=== PATIENT | female | born 1955 | race Caucasian/White ===

== ENCOUNTER 2016-06-07 02:19 | Emergency (ER) | payer OTHER ==
[2016-06-07] MEDS ORDERED: GLUCAGON 1 MG/ML VIAL IVP STA (03:38)
[2016-06-07] MEDS ORDERED: ONDANSETRON 4 MG/2 ML VIAL IVP STA (03:38)
[2016-06-07] MEDS ORDERED: ONDANSETRON 4 MG/2 ML VIAL ONE (03:45)
[2016-06-07] MEDS ORDERED: WATER FOR INJECTION,STERILE 10 ML ONE (03:46)
[2016-06-07] MEDS ORDERED: GLUCAGON 1 MG/ML VIAL ONE (03:46)
== END 2016-06-07 04:48 | disposition home or self-care (01) ==
DX: T18.128A Food in esophagus causing other injury, initial encounter (principal); X58.XXXA Exposure to other specified factors, initial encounter; Y93.89 Activity, other specified; I10 Essential (primary) hypertension